=== PATIENT | male | born 1975 | race African-American/Black ===

== ENCOUNTER 2018-03-26 15:50 | Emergency (ER) | payer BC ==
[2018-03-26] MEDS ORDERED: Ketorolac Tromethamine 30 MG/ML VIAL ONE (16:11)
== END 2018-03-26 16:36 | disposition home or self-care (01) ==
LOC: NAV ERS 15:50
DX: S33.5XXA Sprain of ligaments of lumbar spine, initial encounter (principal); E78.5 Hyperlipidemia, unspecified; E03.9 Hypothyroidism, unspecified; I10 Essential (primary) hypertension; Z79.899 Other long term (current) drug therapy; X50.1XXA Overexertion from prolonged static or awkward postures, initial encounter
CPT/HCPCS: 96372; J1885

== ENCOUNTER 2024-05-09 02:29 | Emergency (ER) | payer BC | END 2024-05-09 02:54 | disposition home or self-care (01) | LOC: NAV ERS 02:29 | DX: J01.90 Acute sinusitis, unspecified (principal); I10 Essential (primary) hypertension | CPT/HCPCS: 99283 ==